=== PATIENT | male | born 1940 | race African-American/Black ===

== ENCOUNTER 2017-08-19 08:25 | Emergency (ER) | payer MEDICARE ==
[2017-08-19 10:10] LABS: Hematocrit 42.3 % (35.5-45.6); Hemoglobin 14.6 gm/dl (11.8-15.2); Mean Corpuscular HGB Conc 35 % (32-34); Mean Corpuscular Hemoglobin 39 pg (28-32); Red Blood Count 3.76 M/mm3 (3.65-5.03); Red Cell Distribution Width 13.9 % (13.2-15.2)
[2017-08-19 10:15] LABS: Mean Corpuscular Volume 113 fl (84-94); Platelet Count 74 K/mm3 (140-440)
[2017-08-19 10:26] LABS: Alanine Aminotransferase 35 units/L (7-56); Albumin 3.9 g/dL (3.9-5); BUN/Creatinine Ratio 6; Blood Urea Nitrogen 6 mg/dL (9-20); Calcium 8.9 mg/dL (8.4-10.2); Hemolysis Index 8
--- NOTE | 2017-08-19 10:53 | XRay Report ---
AP CHEST: HISTORY: Shortness of breath Mild chronic interstitial changes and scattered calcified granulomas in the right upper lung are unchanged since 07/30/17. No evidence for acute infiltrate, pleural effusion or pneumothorax. Heart size is normal. Chronic deformity of the left humerus is noted. IMPRESSION: No acute cardiopulmonary process identified.
[2017-08-19 11:19] LABS: RBC Morphology Normal; Total Cells Counted 100
[2017-08-19 11:20] LABS: Platelet Estimate Cons
--- NOTE | 2017-08-19 11:24 | Emergency Department Report ---
Chief Complaint: Abdominal Pain Stated Complaint: FLU LIKE SYMPTOMS - HPI History of Present Illness: 77-year-old non-Serbian speaking patient. Unclear presenting complaint. Will need further workup. - Exam Vital Signs: Vital Signs 08/19/17 08:49 Temperature 98.7 F Pulse Rate 97 H Respiratory 18 Rate Blood Pressure 155/84 O2 Sat by Pulse 94 Oximetry MSE screening note: Focused history and physical exam performed. Due to findings the following was ordered: ED Medical Decision Making - Lab Data Result diagrams: 08/19/17 09:32 08/19/17 09:32 ED Disposition for MSE Condition: Stable Referrals: PRIMARY CARE, [Primary Care Provider] - 3-5 Days
[2017-08-19] MEDS ORDERED: DUONEB *Not for PRN Use IH ONE (12:12)
[2017-08-19] MEDS ORDERED: TYLENOL PO ONE (12:12)
--- NOTE | 2017-08-19 12:20 | Emergency Department Report ---
- General Chief Complaint: Abdominal Pain Stated Complaint: FLU LIKE SYMPTOMS Time Seen by Provider: 08/19/17 11:30 Source: patient Mode of arrival: Ambulatory Limitations: No Limitations - History of Present Illness Initial Comments: 77-year-old male past medical history smoker, BPH, hypertension history of urinary granulomas presents with complaint of 3 days of persistent cough and some body aches. As per patient the symptoms began over 1 week ago but patient states they got slightly worse with a last 3 days. he has been taking Tessalon Perles. Patient is awake alert and oriented 3. Patient speaks Turkish but is accompanied by family design maker Mr. Yonny Rao who assists Mr. Caal with his daily care. As per patient's he was seen and evaluated at [address] [place] [address] 2 weeks ago for respiratory symptoms and discharged home. Patient complaining of persistent cough more than any other symptoms. Denies any nausea vomiting diarrhea rash chest pain palpitations. States he is still actively smoking. MD Complaint: cough, sore throat, rhinorrhea Onset/Timin -: week(s) Severity: mild Associated Symptoms: cough - Related Data Previous Rx's Medication Instructions Recorded Last Taken Type Benzonatate [Tessalon Perles] 100 mg PO Q8HR PRN #20 capsule 08/08/17 Unknown Rx Acetaminophen [Non-Aspirin] 325 mg PO Q8H PRN #30 tablet 08/19/17 Unknown Rx Albuterol Sulfate [Ventolin Hfa] 1 puff IH Q4H PRN #1 hfa.aer.ad 08/19/17 Unknown Rx Dextromethorphan Hb/Doxylamine 10 ml PO Q6H PRN #1 liquid 08/19/17 Unknown Rx [Safetussin Pm Liquid] Doxycycline [Vibramycin CAP] 100 mg PO Q12HR #20 capsule 08/19/17 Unknown Rx Allergies Allergy/AdvReac Type Severity Reaction Status Date / Time No Known Allergies Allergy Unverified 07/30/17 07:43 ED Review of Systems ROS: Stated complaint: FLU LIKE SYMPTOMS Other details as noted in HPI Constitutional: denies: chills, fever Eyes: denies: eye pain, eye discharge, vision change ENT: denies: ear pain, throat pain Respiratory: cough. denies: shortness of breath, wheezing Cardiovascular: denies: chest pain, palpitations Endocrine: no symptoms reported Gastrointestinal: denies: abdominal pain, nausea, diarrhea Genitourinary: denies: urgency, dysuria Musculoskeletal: denies: back pain, joint swelling, arthralgia Skin: denies: rash, lesions Neurological: denies: headache, weakness, paresthesias Psychiatric: denies: anxiety, depression Hematological/Lymphatic: denies: easy bleeding, easy bruising ED Past Medical Hx - Social History Smoking Status: Light Tobacco Smoker Substance Use Type: None - Medications Home Medications: Home Medications Medication Instructions Recorded Confirmed Last Taken Type Benzonatate [Tessalon Perles] 100 mg PO Q8HR PRN #20 capsule 08/08/17 Unknown Rx Acetaminophen [Non-Aspirin] 325 mg PO Q8H PRN #30 tablet 08/19/17 Unknown Rx Albuterol Sulfate [Ventolin Hfa] 1 puff IH Q4H PRN #1 hfa.aer.ad 08/19/17 Unknown Rx Dextromethorphan Hb/Doxylamine 10 ml PO Q6H PRN #1 liquid 08/19/17 Unknown Rx [Safetussin Pm Liquid] Doxycycline [Vibramycin CAP] 100 mg PO Q12HR #20 capsule 08/19/17 Unknown Rx ED Physical Exam - General Limitations: No Limitations General appearance: alert, in no apparent distress - Head Head exam: Present: atraumatic, normocephalic - Eye Eye exam: Present: normal appearance, PERRL, EOMI - ENT ENT exam: Present: mucous membranes moist - Neck Neck exam: Present: normal inspection - Respiratory Respiratory exam: Present: normal lung sounds bilaterally. Absent: respiratory distress - Cardiovascular Cardiovascular Exam: Present: regular rate, normal rhythm. Absent: systolic murmur, diastolic murmur, rubs, gallop - GI/Abdominal GI/Abdominal exam: Present: soft (abdomen soft nontender nondistended), normal bowel sounds - Rectal Rectal exam: Present: deferred - Extremities Exam Extremities exam: Present: normal inspection - Back Exam Back exam: Present: normal inspection - Neurological Exam Neurological exam: Present: alert, oriented X3, CN II-XII intact, normal gait - Psychiatric Psychiatric exam: Present: normal affect, normal mood - Skin Skin exam: Present: warm, dry, intact, normal color. Absent: rash ED Course Vital Signs 08/19/17 08/19/17 08/19/17 08:49 12:20 12:21 Temperature 98.7 F 99.5 F Pulse Rate 97 H 102 H Respiratory 18 16 16 Rate Blood Pressure 155/84 Blood Pressure 134/64 [Left] O2 Sat by Pulse 94 94 Oximetry ED Medical Decision Making - Lab Data Result diagrams: 08/19/17 09:32 08/19/17 09:32 - Medical Decision Making A/P: URI, acute bronchitis 1-Case discussed extensively with Dr. Last for discharge, as per Dr. Last no flu swab at this time 2-patient has long-standing history of thrombocytopenia. Patient is aware of this. No change in chest x-ray since last one done in July 2017. 3-Tylenol, Safe Tussin, course of doxycycline 4-I discussed with patient and patient's caregiver that if his symptoms worsen severe fever and chills nausea vomiting and inability to tolerate anything by mouth or fevers above 100.4 Fahrenheit despite Tylenol use and oral hydration to return to the ED for reevaluation. Patient must follow-up with [facility] for further outpt evaluation of pulmonary granulomas (TB workup). Patient's family friends and caregiver states he is artery arrange for this to occur next week. Patient will also follow up with his primary care doctor Critical care attestation.: If time is entered above; I have spent that time in minutes in the direct care of this critically ill patient, excluding procedure time. ED Disposition Clinical Impression: Acute bronchitis Qualifiers: Bronchitis organism: unspecified organism Qualified Code(s): J20.9 - Acute bronchitis, unspecified Disposition: DC-01 TO HOME OR SELFCARE Is pt being admited?: No Does the pt Need Aspirin: No Condition: Stable Instructions: Albuterol (By breathing), Acute Bronchitis (ED), Cold Symptoms ( ED) Prescriptions: Acetaminophen [Non-Aspirin] 325 mg PO Q8H PRN #30 tablet PRN Reason: Fever Albuterol Sulfate [Ventolin Hfa] 1 puff IH Q4H PRN #1 hfa.aer.ad PRN Reason: Wheezing Dextromethorphan Hb/Doxylamine [Safetussin Pm Liquid] 10 ml PO Q6H PRN #1 liquid PRN Reason: Cough Doxycycline [Vibramycin CAP] 100 mg PO Q12HR #20 capsule Referrals: DEEPTI GALINDO MD [Staff Physician] - 3-5 Days [facility] [Outside] - 3-5 Days [facility] [Outside] - 3-5 Days Forms: Accompanied Note Time of Disposition: 12:20
[2017-08-19 12:22] VITALS: BP 134/64
== END 2017-08-19 13:07 | disposition home or self-care (01) ==
LOC: ED 08:25
DX: J20.9 Acute bronchitis, unspecified (principal); F17.200 Nicotine dependence, unspecified, uncomplicated
CPT/HCPCS: 36415; 71046; 80053; 85007; 85025; 87040

== ENCOUNTER 2018-12-20 12:32 | Emergency (ER) | payer MEDICARE ==
[2018-12-20 13:15] LABS: Hematocrit 35.2 % (35.5-45.6); Hemoglobin 12.3 gm/dl (11.8-15.2); Mean Corpuscular HGB Conc 35 % (32-34); Red Blood Count 2.97 M/mm3 (3.65-5.03); Red Cell Distribution Width 14.3 % (13.2-15.2)
--- NOTE | 2018-12-20 13:15 | Emergency Department Report ---
ED Abdominal Pain HPI - General Chief Complaint: Abdominal Pain Stated Complaint: N/V Time Seen by Provider: 12/20/18 13:03 Source: EMS Mode of arrival: Ambulatory Limitations: Language Barrier - History of Present Illness Initial Comments: 78-year-old male with history of ulcers presents to ED with abdominal pain 2 weeks, diarrhea and vomiting 1 week, with associated decreased appetite and lightheadedness. Denies fever. States pain is in the diffuse abdomen, however worse in the periumbilical area. Patient states no relief with sucralfate. MD Complaint: abdominal pain -: week(s) (2) Location: periumbilical Radiation: other (diffuse abdomen) Migration to: no migration Severity: moderate Severity scale (0 -10): 9 Quality: sharp Consistency: intermittent Improves With: nothing Worsens With: nothing Associated Symptoms: nausea, vomiting, diarrhea. denies: fever, constipation, dysuria, hematemesis, hematochezia, melena - Related Data Home Medications Medication Instructions Recorded Confirmed Last Taken Benzonatate [Tessalon Perles] 100 mg PO Q8HR PRN 08/27/17 08/27/17 08/16/17 Clotrimazole [Jock Itch] 15 gm TP PRN 08/27/17 08/27/17 08/22/17 10:00 Metoclopramide [Reglan TAB] 5 mg PO TID 08/27/17 08/27/17 08/26/17 13:00 Olopatadine HCl [Pataday] 1 drop OU DAILY 08/27/17 08/27/17 Unknown Sucralfate [Carafate] 1 mg PO QID 08/27/17 08/27/17 08/26/17 16:00 amLODIPine [Norvasc] 10 mg PO DAILY 08/27/17 08/27/17 08/26/17 09:00 Previous Rx's Medication Instructions Recorded Last Taken Type Albuterol Sulfate [Ventolin Hfa] 1 puff IH Q4H PRN #1 hfa.aer.ad 08/19/17 08/26/17 16:00 Rx DOXYCYCLINE Hyclate [Vibramycin 100 mg PO Q12HR #20 capsule 08/19/17 08/26/17 09:00 Rx CAP] Omeprazole 20 mg PO DAILY #30 capsule. 08/29/17 Unknown Rx Dicyclomine [Bentyl] 20 mg PO QID PRN #20 tablet 12/20/18 Unknown Rx Ondansetron [Zofran Odt] 4 mg PO Q8HR PRN #20 tab.rapdis 12/20/18 Unknown Rx Allergies Allergy/AdvReac Type Severity Reaction Status Date / Time No Known Allergies Allergy Unverified 07/30/17 07:43 ED Review of Systems ROS: Stated complaint: N/V Other details as noted in HPI Comment: All other systems reviewed and negative Constitutional: denies: chills, fever Gastrointestinal: abdominal pain, nausea, vomiting. denies: diarrhea, constipation ED Past Medical Hx - Past Medical History Previous Medical History?: Yes Hx Hypertension: Yes Hx CVA: No Hx Heart Attack/AMI: No Hx Congestive Heart Failure: No Hx Diabetes: No Hx Deep Vein Thrombosis: No Hx Pulmonary Embolism: No Hx GERD: Yes Hx Liver Disease: No Hx Renal Disease: No Hx of Cancer: No Hx Sickle Cell Disease: No Hx Arthritis: No Hx Headaches / Migraines: No Hx Seizures: No Hx Kidney Stones: No Hx Psychiatric Treatment: No Hx Asthma: No Hx COPD: No Hx Tuberculosis: No Hx Dementia: No Hx HIV: No - Surgical History Past Surgical History?: No Hx Coronary Stent: No Hx Open Heart Surgery: No Hx Pacemaker: No Hx Internal Defibrillator: No Hx Cholecystectomy: No Hx Appendectomy: No Hx Breast Surgery: No - Social History Smoking Status: Never Smoker Substance Use Type: None - Medications Home Medications: Home Medications Medication Instructions Recorded Confirmed Last Taken Type Albuterol Sulfate [Ventolin Hfa] 1 puff IH Q4H PRN #1 hfa.aer.ad 08/19/17 08/27/17 08/26/17 16:00 Rx DOXYCYCLINE Hyclate [Vibramycin 100 mg PO Q12HR #20 capsule 08/19/17 08/27/17 08/26/17 09:00 Rx CAP] Benzonatate [Tessalon Perles] 100 mg PO Q8HR PRN 08/27/17 08/27/17 08/16/17 History Clotrimazole [Jock Itch] 15 gm TP PRN 08/27/17 08/27/17 08/22/17 10:00 History Metoclopramide [Reglan TAB] 5 mg PO TID 08/27/17 08/27/1718 13:00 History Olopatadine HCl [Pataday] 1 drop OU DAILY 08/27/17 08/27/17 Unknown History Sucralfate [Carafate] 1 mg PO QID 08/27/17 08/27/17 08/26/17 16:00 History amLODIPine [Norvasc] 10 mg PO DAILY 08/27/17 08/27/17 08/26/17 09:00 History Omeprazole 20 mg PO DAILY #30 capsule. 08/29/17 Unknown Rx Dicyclomine [Bentyl] 20 mg PO QID PRN #20 tablet 12/20/18 Unknown Rx Ondansetron [Zofran Odt] 4 mg PO Q8HR PRN #20 tab.rapdis 12/20/18 Unknown Rx ED Physical Exam - General Limitations: Language Barrier General appearance: alert, in no apparent distress - Head Head exam: Present: atraumatic, normocephalic - Eye Eye exam: Present: normal appearance - ENT ENT exam: Present: mucous membranes moist - Neck Neck exam: Present: normal inspection - Respiratory Respiratory exam: Present: normal lung sounds bilaterally. Absent: respiratory distress - Cardiovascular Cardiovascular Exam: Present: regular rate, normal rhythm - GI/Abdominal GI/Abdominal exam: Present: soft, tenderness (moderate periumbilical). Absent: distended - Extremities Exam Extremities exam: Present: normal inspection - Neurological Exam Neurological exam: Present: alert, oriented X3 - Psychiatric Psychiatric exam: Present: normal affect, normal mood - Skin Skin exam: Present: warm, dry, intact, normal color ED Course Vital Signs 12/20/18 12/20/18 12/20/18 12:50 12:54 13:00 Temperature 98.6 F Pulse Rate 72 71 77 Respiratory 21 18 15 Rate Blood Pressure 137/55 132/66 Blood Pressure 137/55 [Right] O2 Sat by Pulse 96 98 96 Oximetry 12/20/18 12/20/18 12/20/18 13:15 13:31 13:45 Temperature Pulse Rate 69 70 71 Respiratory 21 14 22 Rate Blood Pressure 132/66 132/66 132/66 Blood Pressure [Right] O2 Sat by Pulse 97 96 96 Oximetry 12/20/18 12/20/18 12/20/18 14:00 14:15 14:31 Temperature Pulse Rate 66 71 91 H Respiratory 17 19 23 Rate Blood Pressure 138/62 138/62 138/62 Blood Pressure [Right] O2 Sat by Pulse 93 95 96 Oximetry 12/20/18 12/20/18 12/20/18 14:45 15:00 15:43 Temperature Pulse Rate 66 66 Respiratory 18 21 Rate Blood Pressure 138/62 142/61 142/61 Blood Pressure [Right] O2 Sat by Pulse 98 96 Oximetry 12/20/18 12/20/18 12/20/18 15:48 16:00 16:15 Temperature Pulse Rate 66 62 Respiratory 17 20 Rate Blood Pressure 142/61 147/67 142/61 Blood Pressure [Right] O2 Sat by Pulse 99 98 97 Oximetry 12/20/18 12/20/18 12/20/18 16:31 16:45 17:00 Temperature Pulse Rate 68 67 65 Respiratory 15 16 16 Rate Blood Pressure 142/61 142/61 133/63 Blood Pressure [Right] O2 Sat by Pulse 96 97 97 Oximetry 12/20/18 12/20/18 12/20/18 17:15 17:31 18:07 Temperature Pulse Rate 67 104 H 83 Respiratory 13 25 H 24 Rate Blood Pressure 133/63 133/63 133/63 Blood Pressure [Right] O2 Sat by Pulse 96 96 96 Oximetry 12/20/18 12/20/18 18:15 18:31 Temperature Pulse Rate 103 H 68 Respiratory 18 18 Rate Blood Pressure 133/63 133/63 Blood Pressure [Right] O2 Sat by Pulse 93 96 Oximetry ED Medical Decision Making - Lab Data Result diagrams: 12/20/18 13:02 12/20/18 13:02 - Radiology Data Radiology results: report reviewed, image reviewed - Medical Decision Making 78-year-old male presents to ED with report of 2 week history of abdominal pain, vomiting, and diarrhea. Vital signs have been stable here in ED. She has a history of pancytopenia, WBCs 2.1 today, which is consistent with labs values in the past. Patient afebrile. AST and ALT are elevated, with elevation of total bilirubin. Ultrasound and CT were obtained which basically shows he patocellular disease, however no intra-abdominal abnormalities. Patient's son does report that she has a history of alcoholism, so this is likely the cause of his lab abnormalities and hepatic disease. Remainder of labs do not seem to show any evidence of dehydration prolonged vomiting, and his renal function is normal and potassium is normal. Patient tolerated PO challenge here in ED, no episodes of emesis or diarrhea during his ER stay. Will discharge at this time as patient seems stable to go home tolerating by mouth. Advised GI follow-up. We will prescribe Bentyl and Zofran. - Differential Diagnosis uti, diverticulitis, bowel obstruction Critical care attestation.: If time is entered above; I have spent that time in minutes in the direct care of this critically ill patient, excluding procedure time. ED Disposition Clinical Impression: Abdominal pain Disposition: DC-01 TO HOME OR SELFCARE Is pt being admited?: No Condition: Stable Instructions: Abuse of Alcohol (ED), Abdominal Pain (ED) Prescriptions: Dicyclomine [Bentyl] 20 mg PO QID PRN #20 tablet PRN Reason: abdominal pain Ondansetron [Zofran Odt] 4 mg PO Q8HR PRN #20 tab.rapdis PRN Reason: Vomiting Referrals: PRIMARY CARE, [Referring] - 3-5 Days [facility] [Provider Group] - 3-5 Days Time of Disposition: 19:11
[2018-12-20 13:20] LABS: Mean Corpuscular Volume 119 fl (84-94); Platelet Count 34 K/mm3 (140-440)
[2018-12-20 14:06] LABS: Alanine Aminotransferase 136 units/L (7-56); Albumin 3.5 g/dL (3.9-5); BUN/Creatinine Ratio 6; Blood Urea Nitrogen 6 mg/dL (9-20); Calcium 8.3 mg/dL (8.4-10.2); Hemolysis Index 5
[2018-12-20 14:39] LABS: Eosinophils % (Manual) 0 % (0.0-4.3); Macrocytosis 1+; Platelet Estimate Consistent w Auto; Total Cells Counted 100
[2018-12-20 15:05] LABS: Bilirubin,Urine NEG (Negative); Blood,Urine NEG (Negative); Color,Urine Yellow (Yellow); Protein,Urine <15 mg/dL mg/dL (Negative); Sperm,Urine 3+ /HPF (NP); Urobilinogen,Urine < 2.0 mg/dL (<2.0)
--- NOTE | 2018-12-20 16:11 | Ultrasound Report ---
PROCEDURE: US ABDOMEN LIMITED TECHNIQUE: Real-time sonography was performed of the right upper quadrant with image documentation. HISTORY: Right upper quadrant abdominal pain, elevated LFT's COMPARISONS: CT A/P 08/26/2017 . FINDINGS: Examination of the gallbladder demonstrates no evidence for gallstones, distention, wall thickening, or pericholecystic fluid. No sonographic Benítez's sign is elicited. Common bile duct is normal in wilson meter measuring 3.0 mm. The liver is mildly heterogeneous in echogenicity without focal abnormality or intrahepatic biliary d ilatation. There is focal echogenic calcification in the right lobe of the liver The pancreas is normal in thickness without focal abnormality or pancreatic duct dilatation. The right kidney is normal in size without calculi or hydronephrosis. The right measures 9.2 cm in c raniocaudal length. There is echogenic linear focus in the right renal pelvis which may represent a v ascular calcification measuring 6 mm in length. Proximal aorta measures 1.9 cm in diameter. IMPRESSION: 1. Mild heterogeneity of the liver 2. Echogenic linear focus in the right renal pelvis which may represent a small vascular calcificatio n This document is electronically signed by Vida Tena MD., December 20 2018 04:08:53 PM ET
[2018-12-20] MEDS ORDERED: ZOFRAN ONE (18:37)
[2018-12-20] MEDS ORDERED: ZOFRAN IV ONE (18:38)
--- NOTE | 2018-12-20 18:48 | Cat Scan Report ---
PROCEDURE: CT ABDOMEN PELVIS W CON TECHNIQUE: Computerized axial tomography of the abdomen and pelvis was performed after the IV inject ion of iodinated nonionic contrast. CT DOSE LENGTH PRODUCT: 665.9 mGycm HISTORY: abd pain, vomiting COMPARISONS: Ultrasound abdomen also performed today and CT abdomen and pelvis dated August 26, 2017 .. The report of the previous CT is not available for review at the time of this dictation. FINDINGS: Visualization of detail in portions of the abdomen and pelvis is limited by motion artifact. The lung bases are without infiltrate, pneumothorax or pleural fluid collection. There appears to be bronchiectasis in the dependent portion of the right lower lobe. The liver is heterogeneous in appearance suggestive of hepatocellular disease. There is prominence of the caudate lobe which can be seen in patients with cirrhosis. The spleen, pancreas, kidneys and adrenal glands are unremarkable. The gallbladder is moderately distended and unremarkable. The bowel is normal caliber. The appendix is normal caliber. There is a small amount of free fluid in the upper abdomen. There is no evidence of pneumoperitoneum. The abdominal aorta is normal caliber. There is no evidence of intra-abdominal adenopathy. There is increased thickness of the urinary bladder wall. The urinary bladder is mildly to moderately distended. The prostate gland appears to be normal size. The bony structures are notable for spondylitic change of the lumbar spine with marked degenerative d isc and endplate change at the L2-L3 level with resulting canal stenosis at this level. IMPRESSION: 1. Evidence of hepatocellular disease. 2. Small amount of free fluid in the upper abdomen. 3. Increased thickness of the urinary bladder wall. 4. 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 This document is electronically signed by Dalia Yin MD., December 20 2018 06:46:56 PM ET
[2018-12-20 19:51] VITALS: BP 127/65
== END 2018-12-20 19:51 | disposition home or self-care (01) ==
LOC: ED 12:32
DX: R10.33 Periumbilical pain (principal); R11.2 Nausea with vomiting, unspecified; R19.7 Diarrhea, unspecified; I10 Essential (primary) hypertension; K21.9 Gastro-esophageal reflux disease without esophagitis; Z79.899 Other long term (current) drug therapy
CPT/HCPCS: 36415; 74177; 76705; 80053; 81001; 83690; 85007; 85025; 96374; 99285; J2405; Q9967